=== PATIENT | male | born 1980 | race African-American/Black ===

== ENCOUNTER 2020-11-27 10:15 | Emergency (ER) | payer OTHER, SELFPAY ==
[2020-11-27 10:21] VITALS: BP 109/70; PULSE 67; RESP 16; TEMP 36.9; O2SAT 99
--- NOTE | 2020-11-27 10:40 | ED.NECK ---
HPI - Neck Pain/Injury General Chief Complaint: Neck Pain/Injury Stated Complaint: neck pain Source: patient and RN notes reviewed Limitations: no limitations History of Present Illness HPI Narrative: The patient, who is right-handed, presents with upper shoulder/lower neck discomfort. Patient states he has about a week long history of right upper shoulder pain that is worse with motion, better at rest and reportedly radiates slightly to his scapular. No fever, injury, known overuse, numbness/weakness, radiating pain; requests refill of Flexeril Related Data Allergies Allergy/AdvReac Type Severity Reaction Status Date / Time No Known Allergies Allergy Verified 11/27/20 10:23 Review of Systems Review of Systems: General/Constitutional: No weight loss,fever Eyes: N0: Redness,discharge Ears/Nose/Throat: No: Epistaxis,ear discharge Respiratory: Denies: Hemoptysis Gastrointestinal: No Vomiting, Bleeding-rectal Skin: No Lumps, eruption Neurologic: No Focal Weakness,Sz Hematologic: Denies: Petechiae/Purpura Psychiatric: No: Suicida ideationl All Other Systems: Reviewed and Negative [facility] Comments At time of signature, agree with nursing past medical, surgical, social and family history. There is no relevant family history pertinent to the presenting complaint Exam Narrative: General Appearance: Well appearing, Conjunctiva clear Mouth/Throat: Normal appearing, Normal lips, Supple Respiratory: Airway patent MS-neck: Normal strength (no footdrop, 5/5 : Bi?Tri, no saddle weakness) Spine/Back: Paraspinal muscle tender (with mild decreased range of motion; right supraspinatus mm) Skin: Normal color Neurological: A&O x3, CN II-XII intact, Normal reflexes (symmetric, trace bi?tri) Psychiatric: Normal mood Course Vital Signs Vital signs: Vital Signs Temperature 98.4 F 11/27/20 10:21 Pulse Rate 67 11/27/20 10:21 Respiratory Rate 16 11/27/20 10:21 Blood Pressure 109/70 11/27/20 10:21 Pulse Oximetry 99 11/27/20 10:21 Temperature 98.4 F 11/27/20 10:21 Pulse Rate 67 11/27/20 10:21 Respiratory Rate 16 11/27/20 10:21 Blood Pressure 109/70 11/27/20 10:21 Pulse Oximetry 99 11/27/20 10:21 Discharge Plan Discharge Clinical Impression: Strain of neck muscle Qualifiers: Encounter type: initial encounter Qualified Code(s): S16.1XXA - Strain of muscle, fascia and tendon at neck level, initial encounter Patient Disposition: Home, Self-Care Condition: Stable Instructions: Neck Pain (ED) Prescriptions: New prednisone 20 mg tablet 60 mg PO DAILY Qty: 15 RF: 0 tramadol 50 mg tablet 50 - 75 mg PO TID PRN (Reason: pain) Qty: 20 RF: 0 acetaminophen-codeine 300-30 mg tablet 1 - 1.5 tablet PO HS PRN (Reason: pain) Qty: 10 RF: 0 cyclobenzaprine 10 mg tablet 10 mg PO BID Qty: 14 RF: 2 Follow-up/Referrals: PHYSICIAN,[facility]BACCO CLOTH RECLAIMER [Primary Care Provider] -
== END 2020-11-27 10:55 | disposition home or self-care (01) ==
PROVIDERS: Emergency Provider Emergency Medicine
DX: S16.1XXA Strain of muscle, fascia and tendon at neck level, initial encounter (principal); X58.XXXA Exposure to other specified factors, initial encounter
CPT/HCPCS: 99213; G0463

== ENCOUNTER 2021-12-06 15:46 | Outpatient (CLI) | payer OTHER, SELFPAY ==
--- NOTE | ~2021-12-06 | XR_ITS ---
EXAMINATION: XR chest 2V 12/06/2021 16:01 INDICATION: Nonspecific reaction to cell-mediated community PROCEDURE: 2 view chest COMPARISON: No prior studies for comparison. FINDINGS: The lungs are clear. The cardiomediastinal silhouette is within normal limits. There are no pleural effusions. There is no pneumothorax suspected. IMPRESSION: 1: NO ACUTE CARDIOPULMONARY DISEASE. Reviewed, dictated and finalized at location A.
== END 2021-12-06 15:47 | disposition home or self-care (01) ==
PROVIDERS: Visit Provider Pediatrics
DX: R76.12 Nonspecific reaction to cell mediated immunity measurement of gamma interferon antigen response without active tuberculosis (principal); Z11.1 Encounter for screening for respiratory tuberculosis; Z20.1 Contact with and (suspected) exposure to tuberculosis
CPT/HCPCS: 71046

== ENCOUNTER → 2022-03-06 13:43 | Outpatient (CLI) | payer OTHER, SELFPAY ==
--- NOTE | ~2022-03-06 | XR_ITS ---
EXAM: XR abdomen/kub 1V DATE: 03/06/2022 14:31 HISTORY: MICROSCOPIC HEMATURIA . COMPARISON: None available. FINDINGS: Clear lung bases. Normal bowel gas pattern. No organomegaly. Pelvic phleboliths. Regional bones and soft tissues normal for age. IMPRESSION: Normal abdominal radiograph findings. Reviewed, dictated and finalized at location K. ENT [employer]INGER
--- NOTE | ~2022-03-06 | CT_ITS ---
EXAMINATION: CT abdomen pelvis wo/w con DATE: 03/06/2022 14:31 INDICATION: Microscopic hematuria TECHNIQUE: Computed tomography (CT) of the abdomen and pelvis was performed without intravenous contr ast. CT of the abdomen and pelvis was then performed with a total of 130 mL Omnipaque 350 intravenous contrast using a double-bolus technique for simultaneous opacification of the renal parenchyma and r enal collecting system. The dose-length product (DLP) was 1116.30 mGy-cm. Automated exposure control and iterative reconstruction technique were employed. COMPARISON: None FINDINGS: Minimal dependent atelectasis is present in the lung bases. The heart size is normal. The l iver, spleen, pancreas, gallbladder, and adrenal glands are normal. No stones are identified in the k idneys, ureters, or bladder. There is no hydronephrosis or hydroureter. No suspicious renal or urothe lial lesion is identified. No pathologically enlarged abdominal or pelvic lymph nodes are identified. There is no free intraperitoneal gas or evidence of bowel obstruction. The appendix is normal. IMPRESSION: 1. No CT correlate for the patient's symptoms. Reviewed, dictated and finalized at location B. GRATION PARALEGAL
[2022-03-06 14:12] LABS: Estimated Glomerular Filt Rate > 60
== END ==
PROVIDERS: Visit Provider Urology
DX: R31.29 Other microscopic hematuria (principal)
CPT/HCPCS: 74018; 74178; Q9967

== ENCOUNTER 2023-01-12 16:03 | Outpatient (CLI) | payer OTHER, SELFPAY ==
--- NOTE | ~2023-01-12 | XR_ITS ---
EXAMINATION: XR chest 2V 01/12/2023 16:17 INDICATION: Screening for respiratory tuberculosis PROCEDURE: 2 view chest COMPARISON: No prior studies for comparison. FINDINGS: The lungs are clear. The cardiomediastinal silhouette is within normal limits. There are no pleural effusions. There is no pneumothorax suspected. IMPRESSION: 1: NO ACUTE CARDIOPULMONARY DISEASE. Reviewed, dictated and finalized at location B.
== END 2023-01-12 16:04 | disposition home or self-care (01) ==
LOC: ANHIMG 16:06
PROVIDERS: PCP Family Medicine; Visit Provider Family Medicine
DX: Z11.1 Encounter for screening for respiratory tuberculosis (principal)
CPT/HCPCS: 71046

== ENCOUNTER 2024-03-12 13:34 | Emergency (ER) | payer OTHER, SELFPAY ==
--- NOTE | 2024-03-12 13:42 | ED.NAVMDI ---
HPI - Nausea/Vomiting/Diarrhea General Chief complaint: Nausea/Vomiting/Diarrhea Stated complaint: diarrhea Source: patient and RN notes reviewed Mode of arrival: ambulatory Limitations: no limitations History of Present Illness HPI Narrative: 43 y/o male presented for c/o diarrhea. Onset yesterday after returning from [facility] and [facility] yesterday. Has taken Pepto and gatorade. Has not eaten today. Denies associated abdominal pain, n/v, fever or hematochezia. Related Data Home Medications Medication Instructions Recorded Confirmed No Home Medications 12/26/23 03/12/24 Allergies Allergy/AdvReac Type Severity Reaction Status Date / Time No Known Allergies Allergy Verified 12/26/23 15:33 Review of Systems Review of Systems: CONSTITUTIONAL: Denies body aches, fever, chills ENT: Denies rhinorrhea, congestion CARDIOVASCULAR: Denies chest pain, palpitations, or edema. RESPIRATORY: Denies cough or dyspnea. GASTROINTESTINAL: Endorses diarrhea. Denies abdominal pain, nausea, vomiting, hematochezia, melena GENITOURINARY: Denies dysuria, hematuria, or CVA tenderness. SKIN: Denies rash MUSCULOSKELETAL: Denies back pain, joint pain, or myalgia. NEUROLOGIC: Denies headache, numbness, tingling, or weakness. All systems reviewed & are unremarkable except as noted in HPI and below PMFSH Past Medical History Medical History HLD (hyperlipidemia) Family History Family History Mother Hypertension Social History Social History Smoking status: Never smoker Second hand tobacco smoke exposure: No Alcohol intake: current Substance use: never Substance use type: does not use Living arrangements: with family Occupation/Education: occupation Gender identity (if verbalized by the patient): Male Sexual Orientation (if Verbalized by the Patient): Straight or Heterosexual Comments At time of signature, I have reviewed and agree with nursing past medical, surgical, social and family history unless otherwise noted. Please see nursing chart for further information. There is no relevant family history pertinent to the presenting complaint Exam Narrative: GENERAL: Well-appearing EYES: EOMI. Conjunctivae normal. ENT: Mucous membranes pink and moist. CHEST: No respiratory distress. Clear to auscultation. HEART: Regular rate and rhythm. No murmur appreciated. Normal peripheral pulses. ABDOMEN: abd soft, nondistended, normal active bowel sounds. nontender abdomen; No guarding, rebound tenderness, asymmetry EXTREMITIES: Normal range of motion. No edema. SKIN: Warm, dry, Capillary refill normal. Normal skin turgor. NEURO: No focal deficits. Alert and oriented x3. PSYCH: Normal affect. Course Course Emergency Course: Patient is aware of diagnosis, understands and agrees to treatment plan. Anticipatory guidance given. Patient agrees to follow-up as directed and is aware of reasons to seek care at the emergency department. Portions of this record may have been created with voice recognition software Level of Care: Express Care Visit Vital Signs Vital signs: Vital Signs Temperature 97.8 F 03/12/24 13:46 Pulse Rate 65 03/12/24 13:46 Respiratory Rate 16 03/12/24 13:46 Blood Pressure 101/75 03/12/24 13:46 Pulse Oximetry 100 03/12/24 13:46 Temperature 97.8 F 03/12/24 13:46 Pulse Rate 65 03/12/24 13:46 Respiratory Rate 16 03/12/24 13:46 Blood Pressure 101/75 03/12/24 13:46 Pulse Oximetry 100 03/12/24 13:46 Oxygen Delivery Room Air 03/12/24 13:47 MDM - Nausea/Vomiting/Diarrhea MDM Narrative Medical decision making narrative: Discussed physical exam findings. Advised supportive measures and signs/symptoms to go to the ER. 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 Rx provided. Pt is appropriate for outpt treatment and f/u. Differential Diagnosis Differential diagnosis: Likely traveler's diarrhea, food poisoning, gastroenteritis, clostridium difficile infection, drug-induced nausea and vomiting and dehydration Discharge Plan Discharge Clinical Impression: Traveler's diarrhea Patient Disposition: Home, Self-Care Condition: Stable Instructions: Antibiotic Form, Traveler's Diarrhea (ED) Additional Instructions: Stay hydrated. Take small sips of fluid containing electrolytes frequently. Clear liquids (broth, jello, tea, sprite, pedialyte) and [place]erry foods (bananas, rice, applesauce, toast, crackers) Avoid fatty, greasy, fried or spicy foods. Limit dairy until symptoms are improved. Recommend probiotic such as align or lactobacillus to help with symptoms. Take antibiotic as directed You should go to the hospital if you experience persistent nausea and vomiting that does not resolve and does not allow you to tolerate any food or fluids, fevers, increasing abdominal pain, persistent diarrhea, blood in stool, or for any other concerns. Follow up with primary care provider in 3 days. Prescriptions: New ciprofloxacin HCl [Cipro] 500 mg tablet 500 mg PO Q12H 10 Days Qty: 20 0RF No Action No Home Medications Follow-up/Referrals: Geovani Simmons MD [Primary Care Provider] - Time of Disposition: 14:04
[2024-03-12 13:46] VITALS: BP 101/75; PULSE 65; RESP 16; TEMP 36.6; O2SAT 100
== END 2024-03-12 14:06 | disposition home or self-care (01) ==
PROVIDERS: Emergency Provider Nurse Practitioner Family; PCP Family Medicine
DX: A09 Infectious gastroenteritis and colitis, unspecified (principal); E78.5 Hyperlipidemia, unspecified
CPT/HCPCS: 99213; G0463